=== PATIENT | female | born 1990 | race American Indian/Alaskan Native ===

== ENCOUNTER 2017-03-28 08:59 | Inpatient (IN) | payer MEDICAID ==
[2017-03-28] MEDS ORDERED: BRETHINE SUB-Q PRN (10:21)
[2017-03-28] MEDS ORDERED: XYLOCAINE 2% INFILTRATI ONE (10:21)
[2017-03-28] MEDS ORDERED: ePHEDrine SULFATE IV PRN (10:21)
[2017-03-28] MEDS ORDERED: CERVIDIL VG ONE (10:21)
[2017-03-28] MEDS ORDERED: MINERAL OIL PO PRN (10:21)
[2017-03-28] MEDS ORDERED: BRETHINE IVP PRN (10:21)
[2017-03-28] MEDS ORDERED: ZOFRAN IV PRN ×2 (10:21→21:58)
--- NOTE | 2017-03-28 10:35 | History and Physical Report ---
History of Present Illness Date of examination: 03/28/17 Date of admission: 03/28/17 08:59 Chief complaint: Scheduled induction History of present illness: 26-year-old at 39+4 presents for induction of labor due to Morbid obesity , she is a [facility] patient. course complicated by abnormal quad positive for trisomy 18. She was referred to [facility]. Patient claims she is negative for GDM, review of chart however shows she failed her 3 hour GTT performed at 28 weeks. It appears [facility] not aware of positive gestational diabetes status. She has had regular growth scans the last on 03/22 shows an ~ 3598 g or 7 lbs. 15 oz. On exam, she is fingertip Past History Past Medical History: no pertinent history Past Surgical History: tonsillectomy, D&C DIRECTOR WRITING History: denies: chlamydia, gonorrhea, hepatitis B, hepatitis C, herpes, HIV , syphilis, trichomonas Social history: single, full code. denies: smoking, alcohol abuse, prescription drug abuse, IV drug use - Obstetrical History Expected Date of Delivery: 03/31/17 Actual Gestation: 39 Week(s) 4 Day(s) : 2 Para: 0 Medications and Allergies Allergies Allergy/AdvReac Type Severity Reaction Status Date / Time No Known Allergies Allergy Verified 09/15/14 19:50 Home Medications Medication Instructions Recorded Confirmed Last Taken Type Ondansetron [Zofran Odt] 4 mg PO Q6H #10 tab.rapdis 09/15/14 03/28/17 Unknown Rx Metoclopramide [Reglan] 10 mg PO ACHS 03/28/17 03/28/17 02/08/17 07:00 History Vit No.130/Iron/FA 1 each PO DAILY 03/28/17 03/28/17 02/08/17 07:00 History [ Tablet] Active Meds: Active Medications Lactated Ringer's (Lactated Ringers) 1,000 mls @ 125 mls/hr IV DIRECT LIYAH Oxytocin/Sodium Chloride (Pitocin/Ns 20 Unit/1000ml Drip) 20 units in 1,000 mls @ 125 mls/hr IV DIRECT LIYAH Oxytocin/Sodium Chloride (Pitocin/Ns 30 Unit/500ml) 30 units in 500 mls @ 1 mls /hr IV TITR LIYAH; 1 MILLIUNITS/MIN PRN Reason: Protocol Mineral Oil (Mineral Oil) 30 ml PO QHS PRN PRN Reason: Constipation Ondansetron HCl (Zofran) 4 mg IV Q8H PRN PRN Reason: Nausea And Vomiting Review of Systems Constitutional: no fever, no chills, no sweats, no chronic headaches Cardiovascular: no chest pain, no orthopnea, no palpitations, no edema, no syncope, no dyspnea on exertion, no paroxysmal nocturnal dyspnea, no high blood pressure Respiratory: no cough, no hemoptysis, no shortness of breath, no dyspnea on exertion, no sleep apnea Gastrointestinal: no abdominal pain, no nausea, no vomiting, no diarrhea, no heartburn, no indigestion Genitourinary: no vaginal bleeding, no vaginal discharge, no leakage of fluid, no contractions - Vital Signs Vital signs: Vital Signs Temp Pulse Resp BP 98.6 F 112 H 18 126/86 03/28/17 09:36 03/28/17 09:36 03/28/17 09:36 03/28/17 09:36 Temp Pulse Resp BP Pulse Ox 98.6 F 112 H 18 126/86 03/28/17 09:36 03/28/17 09:37 03/28/17 09:36 03/28/17 09:37 - Physical Exam Abdomen: Positive: normal appearance, soft. Negative: distention, tenderness, guarding, rigidity Genitourinary (Female): Positive: normal external genitalia Uterus: Positive: enlarged (difficult to estimate EFW due to morbid obesity) Adnexa: both: normal Extremities: Positive: normal - Obstetrical FHR: category 1 Cervical Dilatation: 0 Results All other labs normal. Assessment and Plan A: 26-year-old at 39+4 weeks here for labor induction -Category 1 tracing issues -Morbid obesity -GDM (untreated) -Trisomy 18 pos P: -Admit -Routine labs -Obtain growth scan -Advised patient we'll discuss mode of delivery after growth available -Will likely use Cervidil if induction proceeds -Continue present care - Patient Problems (1) 39 weeks gestation of Current Visit: Yes Status: Acute (2) Maternal morbid obesity in third trimester, antepartum Current Visit: Yes Status: Acute (3) Gestational diabetes mellitus (GDM) in third trimester Current Visit: Yes Status: Acute Qualifiers: Gestational diabetes mellitus control: G
[2017-03-28] MEDS ORDERED: D50W (25GM) Syringe IV PRN (10:41)
[2017-03-28] MEDS ORDERED: PITOCin/NS 20 UNIT/1000ML DRIP 20 UNITS/1,000 ML BAG IV SCH ×2 (11:00→18:00)
[2017-03-28] MEDS ORDERED: LACTATED RINGERS 1,000 ML IV SCH ×2 (11:00→15:00)
[2017-03-28] MEDS ORDERED: PITOCin/NS 30 UNIT/500ML 30 UNITS/500 ML BAG IV SCH (11:00)
[2017-03-28 11:31] LABS: Hematocrit 31.8 % (30.3-42.9); Hemoglobin 10.4 gm/dl (10.1-14.3); Mean Corpuscular HGB Conc 33 % (30-34); Mean Corpuscular Volume 79 fl (79-97); Platelet Count 222 K/mm3 (140-440); Red Blood Count 4.03 M/mm3 (3.65-5.03); Red Cell Distribution Width 15.3 % (13.2-15.2); White Blood Count 7.3 K/mm3 (4.5-11.0)
[2017-03-28 11:32] LABS: Mean Corpuscular Hemoglobin 26 pg (28-32)
[2017-03-28] MEDS ORDERED: PEPCID IV ONE ×2 (14:52→15:00)
[2017-03-28] MEDS ORDERED: REGLAN IV ONE (14:52)
[2017-03-28] MEDS ORDERED: BICITRA PO ONE (14:52)
[2017-03-28] MEDS ORDERED: ANCEF/STERILE WATER 2 GM/20 ML 2 GM/20 ML SYRINGE IV NR (15:00)
--- NOTE | 2017-03-28 15:09 | Ultrasound Report ---
OB ULTRASOUND FOLLOWUP History: Gestational diabetes. Comparison: None at this facility. Technique: Transabdominal ultrasound with Doppler interrogation. Gestation: Single Position: Cephalic Amniotic Fluid: Increased CURT = 28.3 cm Placenta: Anterior Placental Grade: 2 Heart Rate: 139 BPM BPD: 9.1 cm = 37 w 0 d HC: 33.9 cm = 39 w 0 d AC: 37.9 cm = 41 w 6 d FL: 8.1 cm = 41 w 2 d HC/AC Ratio: 0.89 Cephalic Index: 79.5 Estimated Weight: 4143 grams. 91 percentile Clinical age = 39 w 4 d EDC: 03/31/17 US Gest. Age = 39 w 6 d EDC: 03/29/17
[2017-03-28] MEDS ORDERED: MORPHINE ONE (16:17)
--- NOTE | 2017-03-28 16:18 | Event Note ---
Date: 03/28/17 Patient with untreated gestational diabetes. Estimated weight on sonogram is over 4000 g, with CURT - 28. She is morbidly obese with BMI 49, I am unable to estimate weight due to body habitus. Discussed above findings and options with patient and her mother. Reviewed possible risks of each plan of action. Patient her mother and father of the baby after discussion have decided on proceeding with primary .
[2017-03-28] MEDS ORDERED: BENADRYL IV PRN (16:27)
[2017-03-28] MEDS ORDERED: MORPHINE IV PRN ×3 (16:27→22:00)
[2017-03-28] MEDS ORDERED: TORADOL IV PRN (16:27)
[2017-03-28] MEDS ORDERED: NARCAN 0.4 MG/1 ML IV PRN ×2 (16:27→17:54)
--- NOTE | 2017-03-28 16:28 | Anesthesia Consultation ---
Anesthesia Consult and Med Hx Date of service: 03/28/17 - Airway Anesthetic Teeth Evaluation: Good ROM Head & Neck: Adequate Mental/Hyoid Distance: Adequate Mallampati Class: Class II Intubation Access Assessment: Probably Good - Pulmonary Exam CTA: Yes - Cardiac Exam Cardiac Exam: RRR - Pre-Operative Health Status ASA Pre-Surgery Classification: ASA3 Proposed Anesthetic Plan: Epidural, Spinal - Pulmonary Hx Asthma: Yes (last use of inhaler age 8) COPD: No Hx Pneumonia: No - Cardiovascular System Hx Hypertension: No - Central Nervous System Hx Seizures: No Hx Psychiatric Problems: No - Endocrine Hx Renal Disease: No Hx End Stage Renal Disease: No Hx Insulin Dependent Diabetes: Yes (gestational) Hx Hypothyroidism: No Hx Hyperthyroidism: No - Hematic Hx Anemia: No Hx Sickle Cell Disease: No - Other Systems Hx Alcohol Use: No (occas social) Hx Obesity: Yes (BMI 49) - Additional Comments Anesthesia Medical History Comments: +IUP
--- NOTE | 2017-03-28 16:29 | Anesthesia Day of Surgery ---
Anesthesia Day of Surgery - Day of Surgery Patient Examined: Yes Patient H&P Reviewed: Yes Patient is NPO: Yes
[2017-03-28] MEDS ORDERED: XYLOCAINE MPF 2% ONE (16:58)
[2017-03-28] MEDS ORDERED: ZOFRAN ONE (17:21)
--- NOTE | 2017-03-28 17:53 | Operative Report ---
Operative Report Operative Report: DATE: 03/28/2017 PREOPERATIVE DIAGNOSIS: 26-year-old at 39+4 weeks, suspected macrosomia, Untreated Gestational diabetes, morbid obesity POSTOP DIAGNOSIS: Same NAME OF PROCEDURE: Primary low transverse section SURGEON: MAXWELL GRANGER MD INTERACTIVE PROJECT MANAGER: [] ANESTHESIA: Combined spinal epidural EBL: 800 mL PATHOLOGY SPECIMEN: None URINE OUTPUT: 100 mL FINDINGS: Male in cephalic presentation, time of was 14:56, Apgars were 8 and 9, weight was 8 lbs. 8 oz. or 3863 g, normal uterus tubes and ovaries bilaterally, substantial subcutaneous fat DESCRIPTION OF PROCEDURE: After informed consent, patient was taken to the operating room where she was prepped and draped in a sterile fashion. Pfannestial incision was performed 2 cm above the pubic symphysis. This was then carried down to the underlying rectus fascia which was scored in the midline. The fascial incision was extended laterally with the use of Kohler scissors, anterior leaf was then grasped with Arlette's elevated dissected sharply and bluntly off the underlying rectus. In a similar fashion the inferior leaf was grasped elevated dissected sharply and bluntly off the underlying rectus. The rectus was in the midline and the peritoneal cavity was entered without difficulty. After good visualization of the bladder the peritoneal layer was extended up and down; bladder blade was placed in the patient's pelvic cavity, bladder flap was created without difficulty. A hysterotomy incision was then performed with clear amniotic fluid noted. Infant in cephalic presentation was delivered without difficulty in the usual manner; cord was clamped cut and infant was handed over to waiting NICU staff. The placenta was then delivered intact, the uterus was then exteriorized cleared of all clots and debris. Her hysterotomy incision was then closed in a running locked fashion with 0 Vicryl on a CTX; using the same suture were able to imbricate the initial layer. The uterus was then returned to the patient's pelvic cavity; the peritoneal edges were grasped with hemostats and Bridgett's; irrigation was used to clear the gutters of all clots and debris. Tisseel hemostatic agent was applied copiously over the hysterotomy incision. The bladder flap was then closed in a running fashion with 3-0 Vicryl. The peritoneal layer was closed in a running fashion with 3-0 Vicryl; the rectus was reapproximated with a single [id number] stitch. The fascia was then closed in a running fashion with 0 Vicryl; the subcutaneous layer was reapproximated with a single [id number] stitch. The skin was then closed in a subcuticular manner with 4-0 Monocryl. She tolerated the procedure well lap and instrument counts were correct 2, she did receive 2 grams of Ancef prior to the procedure. She is transferred to PACU in stable condition.
[2017-03-28] MEDS ORDERED: PHENERGAN PR PRN (17:54)
[2017-03-28] MEDS ORDERED: LANSINOH TP PRN (17:54)
[2017-03-28] MEDS ORDERED: TUCKS PAD TP PRN (17:54)
[2017-03-28] MEDS ORDERED: MYLICON PO PRN (17:54)
[2017-03-28] MEDS ORDERED: SENOKOT PO PRN (17:54)
[2017-03-28] MEDS ORDERED: MILK OF MAGNESIA PO PRN (17:54)
[2017-03-28] MEDS ORDERED: ANUCORT-HC PR PRN (17:54)
[2017-03-28] MEDS ORDERED: TYLENOL PO PRN (17:54)
[2017-03-28] MEDS ORDERED: SODIUM CHLORIDE FLUSH SYRINGE 10 ML IV NR (18:00)
--- NOTE | 2017-03-28 18:00 | Post Anesthesia Evaluation ---
- Post Anesthesia Evaluation Patient Participated: Yes Airway Patent: Yes Stable Respiratory Function: Yes Nausea/Vomiting: No Temp > 96.8F: Yes Pain Manageable: Yes Adequeate Hydration: Yes Anesthesia Complications: No Block Receding Appropriately: Yes Patient on Ventilator: No
[2017-03-28] MEDS ORDERED: METHERGINE IM ONE ×2 (19:12→19:16)
[2017-03-28] MEDS: D5LR 1,000 ML IV SCH (21:28)
[2017-03-28] MEDS: METHERGINE IM SCH (22:20)
[2017-03-29 04:47] LABS: Hematocrit 25.7 % (30.3-42.9); Hemoglobin 8.6 gm/dl (10.1-14.3)
[2017-03-29] MEDS: D5LR 1,000 ML IV SCH (05:15)
[2017-03-29] MEDS: METHERGINE IM SCH ×3 (05:20→22:00)
[2017-03-29] MEDS ORDERED: BOOSTRIX IM ONE (06:00)
[2017-03-29] MEDS ORDERED: M-M-R II VACCINE SUB-Q ONE (06:00)
--- NOTE | 2017-03-29 10:35 | Progress Note ---
Subjective Date of service: 03/29/17 Interval history: 1st POD after Patient in in the bed, comfortable. Pain is well controlled with pain meds. Ambulated well. No residual neurological deficit. No significant pruritus. No anesthesia complications Objective - Constitutional Vitals: Vital Signs - 12hr 03/29/17 03/29/17 03/29/17 00:00 04:00 09:10 Temperature 98.8 F 98.7 F 98.2 F Pulse Rate 78 98 H 101 H Respiratory 20 20 Rate Blood Pressure 123/74 118/74 106/77 - Labs CBC & Chem 7: 03/29/17 04:35 Labs: Abnormal lab results 03/28/17 03/29/17 Range/Units 10:45 04:35 Hgb 8.6 L (10.1-14.3) gm/dl Hct 25.7 L D (30.3-42.9) % MCH 26 L (28-32) pg RDW 15.3 H (13.2-15.2) %
[2017-03-29] MEDS: FEOSOL PO SCH (10:45)
[2017-03-29] MEDS: PRENATAL VITAMIN PO SCH (10:45)
[2017-03-29] MEDS: PERCOCET 5/325 PO PRN ×2 (12:40→20:40)
[2017-03-29] MEDS: MOTRIN PO PRN ×2 (12:40→20:40)
--- NOTE | 2017-03-29 14:09 | Progress Note ---
Assessment and Plan POD #1 status post primary -Doing well issues -Morbid obesity -GDM (untreated) -Trisomy 18 pos P: -If no urination in 1-2 hours we'll consider bladder scan -Continue routine care -Anticipate discharge in 24-48 hours - Patient Problems (1) 39 weeks gestation of Current Visit: Yes Status: Acute (2) Maternal morbid obesity in third trimester, antepartum Current Visit: Yes Status: Acute (3) Gestational diabetes mellitus (GDM) in third trimester Current Visit: Yes Status: Acute Qualifiers: Gestational diabetes mellitus control: G Subjective - Subjective Date of service: 03/29/17 Principal diagnosis: POD# 1 Interval history: She seen and examined, already ambulating without difficulty. No fever or chills no shortness of breath no nausea or vomiting. Callejas was removed in the a.m. patient has not yet urinated. No other complaints or issues Patient reports: appetite normal, pain well controlled, ambulating normally, no voiding normally, no dizzy ambulation, no nauseated Royal: doing well Objective - Vital Signs Latest vital signs: Vital Signs Temp Pulse Resp BP Pulse Ox 03/29/17 09:10 98.2 F 101 H 106/77 03/29/17 04:00 98.7 F 98 H 20 118/74 03/29/17 00:00 98.8 F 78 20 123/74 03/28/17 20:15 98.8 F 89 20 102/63 03/28/17 19:45 90 19 114/67 97 03/28/17 19:40 103 H 20 107/65 95 03/28/17 19:35 96 H 22 105/70 95 03/28/17 19:30 97 H 21 105/65 94 03/28/17 19:25 91 H 22 103/61 95 03/28/17 19:20 84 28 H 96/55 96 03/28/17 19:15 92 H 23 106/63 95 03/28/17 19:10 74 17 106/61 97 03/28/17 19:05 81 18 99/65 98 03/28/17 19:03 99.0 F 03/28/17 19:00 77 22 99/65 98 03/28/17 18:55 93 H 17 93/51 96 03/28/17 18:50 90 15 93/51 97 03/28/17 18:45 85 35 H 101/57 96 03/28/17 18:40 82 20 101/58 95 03/28/17 18:35 79 29 H 97/56 96 03/28/17 18:30 83 18 95/56 98 03/28/17 18:25 93 H 17 100/56 100 03/28/17 18:21 117 H 24 107/57 98 03/28/17 18:15 74 23 107/57 96 03/28/17 18:10 77 27 H 116/72 95 03/28/17 18:05 85 23 101/62 97 03/28/17 18:00 82 32 H 101/53 95 03/28/17 17:56 99 03/28/17 17:55 98.3 F Intake and Output 03/28/17 03/29/17 03/29/17 22:59 06:59 14:59 Intake Total 2495 1750 365 Output Total 175 200 Balance 2320 1550 365 Intake: IV 2495 1750 125 ANCEF/STERILE WATER 2 GM/ 20 20 ML 2 gm In 20 ml @ 80 mls/hr IV PREOP NR Rx#: [id number] D5lr 1,000 ml @ 125 mls/ 250 1750 hr IV DIRECT LIYAH Rx#: [id number] Lactated Ringers 1,000 ml 2000 @ 2250 mls/hr IV PREOP LIYAH Rx#:[id number] Left Hand 125 PITOCin/NS 20 UNIT/1000ML 125 DRIP 20 units In 1,000 ml @ 250 mls/hr IV DIRECT LIYAH Rx#:[id number] Oral 240 Output: Urine 175 200 Indwelling Catheter 200 Uretheral (Callejas) 100 Other: Total, Intake Amount 240 Total, Output Amount 200 # Voids Indwelling Catheter 1 Estimated Blood Loss 800 - Exam Abdomen: Present: normal appearance, soft. Absent: distention, tenderness, guarding, rigidity Uterus: Present: firm Extremities: Present: normal Incision: Present: dressed - Labs Labs: Abnormal lab results 03/29/17 Range/Units 04:35 Hgb 8.6 L (10.1-14.3) gm/dl Hct 25.7 L D (30.3-42.9) %
[2017-03-29] MEDS ORDERED: BENADRYL PO PRN (18:19)
[2017-03-29] MEDS ORDERED: D50W (25GM) Syringe IV PRN (20:05)
[2017-03-30] MEDS: METHERGINE IM SCH (06:19)
[2017-03-30] MEDS: PERCOCET 5/325 PO PRN ×2 (06:22→12:11)
[2017-03-30] MEDS: MOTRIN PO PRN ×2 (06:22→12:12)
[2017-03-30 07:57] VITALS: BP 120/68
[2017-03-30] MEDS: FEOSOL PO SCH (10:13)
[2017-03-30] MEDS: PRENATAL VITAMIN PO SCH (10:13)
--- NOTE | 2017-03-30 10:34 | Progress Note ---
Assessment and Plan - Patient Problems (1) Status post primary low transverse section Onset Date: 03/30/17 Current Visit: Yes Status: Resolved Plan to address problem: A: S/P C Section - POD #2 Doing well P: May go home today Subjective - Subjective Date of service: 03/30/17 Principal diagnosis: S/P C Section - POD #2 Interval history: Pt is feeling well without complaints. Tolerating a reg diet without nausea or vomiting, ambulating and voiding without difficulty. She desires to go home today. Patient reports: appetite normal, voiding normally, pain well controlled, flatus , ambulating normally : doing well, bottle feeding Objective - Vital Signs Latest vital signs: Vital Signs Temp Pulse Resp BP 03/30/17 07:30 99.0 F 95 H 20 120/68 03/30/17 00:00 98.7 F 109 H 21 129/71 03/29/17 16:00 98.1 F 75 18 112/78 03/29/17 12:40 20 Intake and Output 03/29/17 03/30/17 03/30/17 22:59 06:59 14:59 Other: # Voids Void 2 - Exam Breasts: Present: deferred Cardiovascular: Present: Regular rate Lungs: Present: Clear to auscultation Abdomen: Present: normal appearance, soft Uterus: Present: normal, firm, fundal height below umbilicus Extremities: Present: normal Incision: Present: normal, dry, intact - Labs Labs: Laboratory Tests 03/28/17 03/28/17 03/28/17 10:45 10:45 13:05 WBC 7.3 RBC 4.03 Hgb 10.4 Hct 31.8 MCV 79 MCH 26 L MCHC 33 RDW 15.3 H Plt Count 222 POC Glucose 86 Blood Type O POSITIVE Antibody Screen Negative 03/29/17 03/29/17 04:35 21:33 WBC RBC Hgb 8.6 L Hct 25.7 L D MCV MCH MCHC RDW Plt Count POC Glucose 86 Blood Type Antibody Screen
--- NOTE | 2017-03-30 10:46 | Discharge Summary ---
Providers - Providers Date of Admission: 03/28/17 08:59 Date of discharge: 03/30/17 Attending physician: MAXWELL GRANGER Primary care physician: MAXWELL GRANGER Hospitalization Reason for admission: section, induction of labor, IUP at term, other ( Untreated GDM) Delivery: Procedure: section, primary low transverse Episiotomy: none Laceration: none Incision: normal, dry, intact Other procedures: none complications: none Discharge diagnosis: IUP at term delivered baby: male Hospital course: Pt is a 26-year-old at 39+4 who presented for induction of labor due to Morbid obesity, she is a [facility] patient. course complicated by abnormal quad positive for trisomy 18. She was referred to [facility]. Patient claims she is negative for GDM, review of chart however shows she failed her 3 hour GTT performed at 28 weeks. It appears [facility] not aware of positive gestational diabetes status. She has had regular growth scans the last on 03/22/2017 shows an infant ~ 3598 g or 7 lbs. 15 oz, and repeat u/s showed EFW ~ 4000g with CURT 28. She therefore underwent a Primary C Section and delivered a 3863gm male infant. Post operative course was unremarkable, and by POD #2 she was tolerating a reg diet without nausea or vomiting, ambulating and voiding without difficulty. Her blood sugars remained under 100mg /dl, and thus she was discharged to home on POD #2 in stable condition. Condition at discharge: Good Disposition: DC-01 TO HOME OR SELFCARE - Discharge Diagnoses (1) Status post primary low transverse section Status: Resolved Plan - Discharge Medications Prescriptions: Ibuprofen [Motrin 600 MG tab] 600 mg PO Q8H PRN #30 tablet PRN Reason: Pain Multivitamin with Iron [Multivitamins with Iron] 1 each PO DAILY #30 tablet oxyCODONE /ACETAMINOPHEN [Percocet 5/325] 1 tab PO Q6HR PRN #30 tablet PRN Reason: Pain - Provider Discharge Summary Activity: routine, no sex for 6 weeks, no heavy lifting 4 weeks, no strenuous exercise Diet: routine Instructions: routine Additional instructions: [] Smoking cessation referral if applicable(refer to patient education folder for contact #) [] Refer to [facility]'s [facility] Booklet Call your doctor immediately for: * Fever > 100.5 * Heavy vaginal bleeding ( >1 pad per hour) * Severe persistent headache * Shortness of breath * Reddened, hot, painful area to leg or breast * Drainage or odor from incision. * Keep incision clean and dry at all times and follow doctor's instructions regarding bathing/showering - Follow up plan Follow up: MAXWELL GRANGER MD [Primary Care Provider] - 14 Days
== END 2017-03-30 15:10 | disposition home or self-care (01) | DRG 765 ==
LOC: EDBD 08:59 → LD 08:59 → OB 20:03
PROVIDERS: ADMIT Obstetrics & Gynecology Gynecology; ATTEND Obstetrics & Gynecology Gynecology
PROC: 10D00Z1 Extraction of Products of Conception, Low, Open Approach (ICD-10-PCS; principal; 2017-03-28)
PROC: 3E0234Z Introduction of Serum, Toxoid and Vaccine into Muscle, Percutaneous Approach (ICD-10-PCS; 2017-03-29)
DX: O24.429 Gestational diabetes mellitus in childbirth, unspecified control (principal); Z68.42 Body mass index [BMI] 45.0-49.9, adult; Z3A.39 39 weeks gestation of pregnancy; Z37.0 Single live birth; O36.63X0 Maternal care for excessive fetal growth, third trimester, not applicable or unspecified; O99.214 Obesity complicating childbirth; E66.01 Morbid (severe) obesity due to excess calories; Z23 Encounter for immunization
CPT/HCPCS: 36415; 76816; 82962; 85014; 85018; 85027; 86850; 86900; 86901; C9250; J1885; J2210; J2270; J2405; J2590; J2765; J7120; J7121